=== PATIENT | male | born 1995 | race Caucasian/White ===

== ENCOUNTER 2017-02-20 16:01 | Inpatient (IN) | payer OTHER ==
[~2017-02-20] VITALS: Ht 170.2 cm; Wt 73.0 kg
[~2017-02-20 16:01] MED LIST: CLX20 PO
[2017-02-20] MEDS ORDERED: CITA40TA12 PO (16:37)
[2017-02-20] MEDS ORDERED: ATV5 PO (16:37)
[2017-02-20] MEDS ORDERED: BUPR-266 PO (16:37)
[2017-02-20] MEDS ORDERED: BUSP15TA70 PO (16:37)
--- NOTE | 2017-02-20 17:17 | EMERGENCY ROOM VISIT NOTE ---
History Report prepared by Aislinn: Amber Mccollum Under the Supervision of: Dr. Marlo Nathan D.O. First contact with patient: 16:54 Chief Complaint: MENTAL HEALTH EVALUATION Stated Complaint: DEPRESSION History of Present Illness The patient is a 21 year old male who presents to the Emergency Room with complaints of persistent, worsening depression over the past several weeks. The patient states that he has a history of anxiety and depression, noting that he was evaluated in the emergency department in the past for his symptoms. He denies any history of schizophrenia or bipolar disorder. The patient states that nothing specific happened to start his symptoms. The patient's mother states that the patient has been following with a Counselor and psychiatrist at [facility] for his depression. She states that the patient's Celexa was increased by 40 mg several weeks ago, and notes that his increased his depression. The patient's mother states that the patient's psychiatrist and counselor have disagreed on the patient's diagnosis. She states that the patient's counselor wants to look into treatment for autism and ADHD, where the psychiatrist believes the patient is depressed and anxious. The patient's mother states that yesterday the patient's psychiatrist started the patient on BuSpar. The patient reports suicidal thoughts, but denies any plan. He denies any homicidal ideation. The patient denies any previous suicide attempt. He reports a decrease in appetite and fluid intake. The patient states that he has been showering. He denies any drug or alcohol use. The patient states that he voluntarily came to the emergency department today to get help. Pt denies headache, change in vision, fevers, chest pain, shortness of breath, nausea, vomiting, diarrhea, pain with urination, and melena. Source of History: patient, parent (mother) Onset: past several weeks Position: other (global) Quality: other (depression) Timing: worsening Note: Associated Symptoms: suicidal thoughts Review of Systems See HPI for pertinent positives & negatives. A total of 10 systems reviewed and were otherwise negative. Past Medical & Surgical Medical Problems: (1) Depression (2) Major depressive disorder, recurrent episode with anxious distress Family History Anxiety disorder FH: cancer Hypertension Social History Smoking Status: Never Smoker Alcohol Use: none Drug Use: none Marital Status: single Housing Status: lives with family Occupation Status: employed Current/Historical Medications Scheduled Bupropion Hcl (Bupropion Hcl Er), 100 MG PO BID Buspirone Hcl (Buspar), 15 MG PO BID Citalopram Hydrobromide (Celexa), 40 MG PO DAILY Scheduled PRN Lorazepam (Lorazepam), 0.5 MG PO BID PRN for Anxiety Allergies Coded Allergies: No Known Allergies (Unverified , 02/20/17) Physical Exam Vital Signs Date Time Temp Pulse Resp B/P (MAP) Pulse Ox O2 Delivery O2 Flow Rate FiO2 02/20/17 19:37 68 18 102/56 98 Room Air 02/20/17 16:12 36.8 66 18 102/64 96 Room Air Physical Exam GENERAL: Sitting up on edge of bed, disheveled, no acute distress, nontoxic. EYE EXAM: normal conjunctiva. OROPHARYNX: no exudate, no erythema, lips, buccal mucosa, and tongue normal and mucous membranes are moist NECK: supple, no nuchal rigidity, no adenopathy, non-tender LUNGS: Clear to auscultation. Normal chest wall mechanics HEART: no murmurs, S1 normal and S2 normal ABDOMEN: abdomen soft, non-tender, normo-active bowel sounds, no masses, no rebound or guarding. BACK: Back is symmetrical on inspection and there is no deformity, no midline tenderness, no CVA tenderness. SKIN: no rashes and no bruising UPPER EXTREMITIES: upper extremities are grossly normal. LOWER EXTREMITIES: No pitting edema. NEURO EXAM: Normal sensorium, cranial nerves II-XII grossly intact, normal speech, no gross weakness of arms, no gross weakness of legs. PSYCH: Admits to suicidal thoughts with depression, not eating, drinking, or caring for self. Flat affect. Medical Decision & Procedures Laboratory Results 02/20/17 17:19 Red Blood Count 4.74, Mean Corpuscular Volume 90.7, Mean Corpuscular Hemoglobin 30.8, Mean Corpuscular Hemoglobin Concent 34.0, Mean Platelet Volume 8.6, Neutrophils (%) (Auto) 54.3, Lymphocytes (%) (Auto) 35.8, Monocytes (%) (Auto) 8.4, Eosinophils (%) (Auto) 1.3, Basophils (%) (Auto) 0.2, Neutrophils # (Auto) 2.92, Lymphocytes # (Auto) 1.92, Monocytes # (Auto) 0.45, Eosinophils # (Auto) 0.07, Basophils # (Auto) 0.01 02/20/17 17:19 Test 02/20/17 16:25 02/20/17 17:11 02/20/17 17:19 Urine Color YELLOW Urine Appearance CLEAR (CLEAR) Urine pH 7.0 (4.5-7.5) Urine Specific [place] 1.024 (1.000-1.030) Urine Protein NEG (NEG) Urine Glucose (UA) NEG (NEG) Urine Ketones NEG (NEG) Urine Occult Blood NEG (NEG) Urine Nitrite NEG (NEG) Urine Bilirubin NEG (NEG) Urine Urobilinogen NEG (NEG) Urine Leukocyte Esterase NEG (NEG) Urine Opiates Screen NEG (NEG) Urine Methadone, Qualitative NEG (NEG) Urine Barbiturates NEG (NEG) Urine Phencyclidine (PCP) Level NEG (NEG) Ur Amphetamine/Methamphetamine NEG (NEG) MDMA (Ecstasy) Screen NEG (NEG) Urine Benzodiazepines Screen NEG (NEG) Urine Cocaine Metabolite NEG (NEG) Urine Marijuana (THC) NEG (NEG) Bedside Glucose 93 mg/dl (70-99) White Blood Count 5.37 K/uL (4.8-10.8) Red Blood Count 4.74 M/uL (4.7-6.1) Hemoglobin 14.6 g/dL (14.0-18.0) Hematocrit 43.0 % (42-52) Mean Corpuscular Volume 90.7 fL (80-100) Mean Corpuscular Hemoglobin 30.8 pg (25-34) Mean Corpuscular Hemoglobin Concent 34.0 g/dl (32-36) Platelet Count 252 K/uL (130-400) Mean Platelet Volume 8.6 fL (7.4-10.4) Neutrophils (%) (Auto) 54.3 % Lymphocytes (%) (Auto) 35.8 % Monocytes (%) (Auto) 8.4 % Eosinophils (%) (Auto) 1.3 % Basophils (%) (Auto) 0.2 % Neutrophils # (Auto) 2.92 K/uL (1.4-6.5) Lymphocytes # (Auto) 1.92 K/uL (1.2-3.4) Monocytes # (Auto) 0.45 K/uL (0.11-0.59) Eosinophils # (Auto) 0.07 K/uL (0-0.5) Basophils # (Auto) 0.01 K/uL (0-0.2) RDW Standard Deviation 40.2 fL (36.4-46.3) RDW Coefficient of Variation 12.0 % (11.5-14.5) Immature Granulocyte % (Auto) 0.0 % Immature Granulocyte # (Auto) 0.00 K/uL (0.00-0.02) Anion Gap 7.0 mmol/L (3-11) Est Creatinine Clear Calc Drug Dose 98.5 ml/min Estimated GFR () 109.9 Estimated GFR (Non- 94.8 BUN/Creatinine Ratio 12.5 (10-20) Calcium Level 8.7 mg/dl (8.5-10.1) Total Bilirubin 0.5 mg/dl (0.2-1) Direct Bilirubin 0.1 mg/dl (0-0.2) Aspartate Amino Transf (AST/SGOT) 12 U/L (15-37) Alanine Aminotransferase (ALT/SGPT) 22 U/L (12-78) Alkaline Phosphatase 80 U/L (45-117) Total Protein 6.8 gm/dl (6.4-8.2) Albumin 4.0 gm/dl (3.4-5.0) Thyroid Stimulating Hormone (TSH) 0.553 uIu/ml (0.300-4.500) Ethyl Alcohol mg/dL < 3.0 mg/dl (0-3) Laboratory results per my review. ED Course ED COURSE: Vital signs were reviewed and showed normal vitals The patients medical record was reviewed The above diagnostic studies were performed and reviewed. ED treatments and interventions as stated above. 1701: The patient was evaluated in room A7. A complete history and physical examination was performed. 1759: Per [facility], the patient has been accepted to their department for further evaluation and treatment. The patient and his family are in agreement with the treatment plan. Medical Decision Differential diagnosis: Etiologies such as mood disorder, infection, hypoglycemia, electrolyte abnormalities, cardiac sources, intracerebral event, toxicologic, neurologic, as well as others were entertained. Medication Reconciliation: I attest that I have personally reviewed the patient' s current medication list. Blood pressure screening: Patient was found to have normal blood pressure on screening and does not require follow-up. Patient is a 21-year-old male with a history of depression who presents the ER for suicidal thoughts associated with depression. He has had these symptoms before in the past. He has no other physical complaints at this time. Labs were unremarkable. Patient was evaluated by [facility] and was admitted for suicidal thoughts along with depression, flat affect and not taking care of himself. Impression Primary Impression: Mood disorder Additional Impression: Suicidal thoughts Scribe Attestation The scribe's documentation has been prepared under my direction and personally reviewed by me in its entirety. I confirm that the note above accurately reflects all work, treatment, procedures, and medical decision making performed by me. Departure Information Dispostion Mental Health Acute Care Referrals No Doctor, Assigned (PCP) Problem Qualifiers
[2017-02-20 17:23] LABS: URINE APPEARANCE CLEAR (CLEAR); URINE BILIRUBIN NEG (NEG); URINE COLOR YELLOW; URINE NITRITE NEG (NEG); URINE SPECIFIC GRAVITY 1.024 (1.000-1.030); UROBILINOGEN NEG (NEG)
[2017-02-20 17:34] LABS: MANUAL MICROSCOPIC REQUIRED? NO; REVIEW REQ? NO
[2017-02-20 17:36] LABS: BASO % 0.2 %; BASO ABS # 0.01 K/uL (0-0.2); COMPLETE YES; EOS % 1.3 %; LYMPH % 35.8 %; LYMPH ABS # 1.92 K/uL (1.2-3.4); MEAN CELL VOLUME 90.7 fL (80-100); MEAN CORPUSCULAR HEMOGLOBIN 30.8 pg (25-34); MEAN PLATELET VOLUME 8.6 fL (7.4-10.4); MONO % 8.4 %; NEUT % 54.3 %; PLATELET COUNT 252 K/uL (130-400); RED BLOOD COUNT 4.74 M/uL (4.7-6.1); WHITE BLOOD COUNT 5.37 K/uL (4.8-10.8)
[2017-02-20 17:44] LABS: BENZODIAZEPINE, URINE NEG (NEG); COCAINE,URINE NEG (NEG); PHENCYCLIDINE, URINE NEG (NEG)
[2017-02-20 17:59] LABS: BUN/CREATININE RATIO 12.5 (10-20); CALCIUM 8.7 mg/dl (8.5-10.1); CREATININE 1.1 mg/dl (0.60-1.40)
[2017-02-20 18:10] LABS: THYROID STIMULATING HORMONE 0.553 uIu/ml (0.300-4.500)
[2017-02-20 19:37] VITALS: O2SAT 98
[2017-02-20] MEDS ORDERED: NURSING VERBAL MED ORDER ONE (20:30)
[2017-02-20] MEDS ORDERED: BISMUTH SUBSALICYLATE PER ML OMNICELL CHARGE PO PRN (20:45)
[2017-02-20] MEDS ORDERED: hydrOXYzine HCL 25 MG TAB PO PRN ×2 (20:45)
[2017-02-20] MEDS ORDERED: ACETAMINOPHEN 325 MG TAB PO PRN (20:45)
[2017-02-20] MEDS ORDERED: MAGNESIUM HYDROXIDE SUSP 30 ML UDC PO PRN (20:45)
[2017-02-20] MEDS ORDERED: SODIUM CHLORIDE 0.65% NA SOLN 45 ML (OCEAN) PRN (20:45)
[2017-02-20] MEDS ORDERED: ALUMINUM/MAGNESIUM SUSP 30 ML UDC PO PRN (20:45)
[2017-02-20] MEDS ORDERED: LORAZEPAM 0.5 MG TAB PO PRN (21:00)
[2017-02-20 21:17] VITALS: BP 98/59; PULSE 53; TEMP 36.6; Ht 170.2 cm; Wt 73.0 kg
[2017-02-20] MEDS: BusPIRone 15 MG TAB PO SCH (21:23)
[2017-02-21 06:45] VITALS: BP_SYST 106; BP_SYST 108; BP_DIAS 59; BP_DIAS 64; PULSE 51; PULSE 62; TEMP 36.3
[2017-02-21] MEDS: BusPIRone 15 MG TAB PO SCH ×2 (08:26→21:24)
[2017-02-21] MEDS: BuPROPion SR 100 MG TABCR PO SCH ×2 (08:26→17:18)
[2017-02-21] MEDS ORDERED: CITALOPRAM 40 MG TAB PO SCH (09:00)
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
[2017-02-21] MEDS ORDERED: VENLAFAXINE HCL XR 37.5 MG CAPXR PO ONE (13:30)
[2017-02-21] MEDS ORDERED: VENLAFAXINE HCL XR 75 MG CAPXR PO ONE (13:30)
[2017-02-22 06:48] VITALS: BP_SYST 107; BP_SYST 109; BP_DIAS 66; BP_DIAS 69; PULSE 59; PULSE 63; TEMP 36.6
[2017-02-22] MEDS: BusPIRone 15 MG TAB PO SCH ×2 (08:44→21:04)
[2017-02-22] MEDS: VENLAFAXINE HCL XR 75 MG CAPXR PO SCH (08:44)
--- NOTE | 2017-02-22 10:53 | Psychiatric Progress Notes ---
Progress Note Date of Service Feb 22, 2017. Interval History 21-year-old gentleman with known depression and anxiety, presents to the emergency room with progressive worsening of his condition resulting in suicidal thinking. He has been on Celexa 40 mg for the better part of the last year without response. Since his outpatient provider was thinking about adding a norepinephrine anergic medications, I will take the liberty of discontinuing Celexa and Wellbutrin and starting him on Effexor XR. I will reduce Celexa to 20 mg tonight and start Effexor XR 37.5 mg today increasing to 75 mg tomorrow. We will coordinate his care with his current providers and plan for a family meeting with his parents. He has chronic anxiety and has no coping strategies to stop the anxiety or guilt that he allows to consume him. We will assist him to learn some thought stopping, meditation, and relaxation exercises. At this time, he requires inpatient mental health treatment due to the severity of his condition and the risk for self-harm if discharged. Chief Complaint "A little better.". Subjective Patient was seen & assessed interval progress reviewed with Treatment Team. Jonathan says that he is adjusting to the unit and feeling a little better than when he came in. He is thinking a lot about his job options. 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 He says "I don't want to let my family down" which makes him feel guilty for considering other options. Parents are scheduled for a meeting this afternoon, but Jonathan is unsure whether they will be able to make it due to work obligations. He reports ongoing SI that "comes and goes", but less overall. He reports good sleep and appetite. He is making good use of groups to talk about his stressors. Effexor was started yesterday, he denies side effects. Review of Systems Constitutional: No fever, No chills, No sweats, No weight loss, No weakness, No fatigue, No problem reported ENT: No hearing loss, No unusual epistaxis, No nasal symptoms, No sore throat, No tinnitus, No dental problems, No trouble swallowing, No problem reported Respiratory: No cough, No sputum, No wheezing, No shortness of breath, No dyspnea on exertion, No dyspnea at rest, No hemoptysis, No problem reported Cardiovascular: No chest pain, No orthopnea, No PND, No edema, No claudication , No palpitations, No problem reported Abdomen: No pain, No nausea, No vomiting, No diarrhea, No constipation, No GI bleeding, No problem reported Musculoskeletal: No joint pain, No muscle pain, No swelling, No calf pain, No problem reported Neurologic: No memory loss, No paralysis, No weakness, No numbness/tingling, No vertigo, No balance problems, No problem reported Psychiatric: + depression symptoms (with ongoing SI) Integumentary: No rash, No itch, No new/changing skin lesions, No color change , No bleeding, No problem reported Sleep Information Total Hours of Sleep: 6.75 Meal Information Percent of Breakfast Consumed: 75 Percent of Lunch Consumed: 75 Percent of Dinner Consumed: 75 Mental Status Exam During interview pt is: alert and oriented, cooperative Appearance: appropriately dressed, appropriately groomed Eye contact is: good Motor behavior is: no abnormal motor movements Speech: normal in rate, rhythm & volume Affect: mood congruent, depressed, flat Mood is: depressed Thought process: goal directed Thought content: reality based without delusions Suicidal thought are: present, Plan: denied, Intent: denied Homicidal thoughts are: denied Hallucinations: denies auditory, denies visual Cognition: memory grossly intact, attention grossly intact, language grossly intact Intelligence estimated to be: average Insight: impaired Judgement: impaired Impression ADjusting well to the structure and support of the milieu. We are crossing over to Effexor XR from Celexa, and no side effects reported. Will continue Celexa 20/Effexor XR 75 tomorrow, but consider DC Celexa Saturday with increase in Effexor XR to 150 . Plan (1) Major depressive disorder, recurrent episode with anxious distress 02/21 -Reduce Celexa to 20 mg at bedtime tonight while starting Effexor XR 37.5 mg today increasing to 75 mg tomorrow -Obtain records from an coordinate care with his current providers -Family meeting with parents -Be sure parents secure the guns -Every 15 minute checks for safety -Encourage participation in group and individual counseling -Assist the patient to learn healthy coping strategies 02/22 - Continue current meds, but if tolerated, DC celexa Saturday and increase Effexor XR to 150 mg. - Family meeting scheduled for this afternoon (2) BETH (generalized anxiety disorder) 02/21 -Medications as above -Continue Ativan 0.5 mg twice a day when necessary as well as BuSpar 15 mg twice a day -Assist the patient to learn and utilize coping strategies such as thought stopping exercises, relaxation, meditation, and mindfulness 02/22 - Meds as above Has been reviewed with Dr. Alexandr Hand Discharge / Aftercare Planning Therapist: Name: constantino Stoker Mechanic: Name: constantino Visit Code E&M Code: 36577 Inventory Assets Strengths: Love of his family, has an associates degree Needs: To learn healthy coping strategies for anxiety and depression Risk Factors Assessment Male: Yes : Yes /single/: Yes Higher / Fall in social status: No Health problems: No Mental Health Diagnoses: Yes Substance use disorders: No Previous attempt: No Previous psychiatric stay: Yes Hopelessness: Yes Smoker: No Protective Factors Assessment Taoism beliefs: Yes : No Responsible for young children: No Employed: Yes Stable relationships: Yes Supportive family: Yes Good rapport with provider: Yes Data Vital Signs Last 24 Hrs: Date Time Temp Pulse Resp B/P (MAP) Pulse Ox O2 Delivery O2 Flow Rate FiO2 02/22/17 06:48 36.6 59 18 109/69 63 107/66 Meds Administered Last 24 Hrs: Meds Administered (Past 24Hrs) Medications (Trade) Dose Ordered Sig/Gabriela Route Start Time Stop Time Status Last Admin Dose Admin Bupropion HCl (Wellbutrin-Sr Tab) 100 mg BID17 PO 02/21/17 09:00 02/22/17 08:27 DC 02/21/17 17:18 100 MG Buspirone HCl (BusPAR TAB) 15 mg BID PO 02/20/17 22:00 03/22/17 21:59 02/22/17 08:44 15 MG Citalopram Hydrobromide (celeXA TAB) 40 mg DAILY PO 02/21/17 09:00 02/21/17 13:13 DC 02/21/17 08:26 40 MG Lorazepam (Ativan Tab) 0.5 mg BID PRN PO 02/20/17 21:00 03/22/17 20:59 02/20/17 21:23 0.5 MG Venlafaxine HCl (effeXOR EXTENDED REL CAP) 75 mg QAM PO 02/22/17 09:00 8/13/17 08:59 02/22/17 08:44 75 MG Venlafaxine HCl (effeXOR EXTENDED REL CAP) 37.5 mg 1330 ONCE PO 02/21/17 13:30 02/21/17 13:56 DC 02/21/17 14:11 37.5 MG Lab Results Last 24 Hrs: 02/20/17 17:19 Red Blood Count 4.74, Mean Corpuscular Volume 90.7, Mean Corpuscular Hemoglobin 30.8, Mean Corpuscular Hemoglobin Concent 34.0, Mean Platelet Volume 8.6, Neutrophils (%) (Auto) 54.3, Lymphocytes (%) (Auto) 35.8, Monocytes (%) (Auto) 8.4, Eosinophils (%) (Auto) 1.3, Basophils (%) (Auto) 0.2, Neutrophils # (Auto) 2.92, Lymphocytes # (Auto) 1.92, Monocytes # (Auto) 0.45, Eosinophils # (Auto) 0.07, Basophils # (Auto) 0.01 02/20/17 17:19 Test 02/20/17 16:25 02/20/17 17:11 02/20/17 17:19 Urine Color YELLOW Urine Appearance CLEAR (CLEAR) Urine pH 7.0 (4.5-7.5) Urine Specific [place] 1.024 (1.000-1.030) Urine Protein NEG (NEG) Urine Glucose (UA) NEG (NEG) Urine Ketones NEG (NEG) Urine Occult Blood NEG (NEG) Urine Nitrite NEG (NEG) Urine Bilirubin NEG (NEG) Urine Urobilinogen NEG (NEG) Urine Leukocyte Esterase NEG (NEG) Urine Opiates Screen NEG (NEG) Urine Methadone, Qualitative NEG (NEG) Urine Barbiturates NEG (NEG) Urine Phencyclidine (PCP) Level NEG (NEG) Ur Amphetamine/Methamphetamine NEG (NEG) MDMA (Ecstasy) Screen NEG (NEG) Urine Benzodiazepines Screen NEG (NEG) Urine Cocaine Metabolite NEG (NEG) Urine Marijuana (THC) NEG (NEG) Bedside Glucose 93 mg/dl (70-99) White Blood Count 5.37 K/uL (4.8-10.8) Red Blood Count 4.74 M/uL (4.7-6.1) Hemoglobin 14.6 g/dL (14.0-18.0) Hematocrit 43.0 % (42-52) Mean Corpuscular Volume 90.7 fL (80-100) Mean Corpuscular Hemoglobin 30.8 pg (25-34) Mean Corpuscular Hemoglobin Concent 34.0 g/dl (32-36) Platelet Count 252 K/uL (130-400) Mean Platelet Volume 8.6 fL (7.4-10.4) Neutrophils (%) (Auto) 54.3 % Lymphocytes (%) (Auto) 35.8 % Monocytes (%) (Auto) 8.4 % Eosinophils (%) (Auto) 1.3 % Basophils (%) (Auto) 0.2 % Neutrophils # (Auto) 2.92 K/uL (1.4-6.5) Lymphocytes # (Auto) 1.92 K/uL (1.2-3.4) Monocytes # (Auto) 0.45 K/uL (0.11-0.59) Eosinophils # (Auto) 0.07 K/uL (0-0.5) Basophils # (Auto) 0.01 K/uL (0-0.2) RDW Standard Deviation 40.2 fL (36.4-46.3) RDW Coefficient of Variation 12.0 % (11.5-14.5) Immature Granulocyte % (Auto) 0.0 % Immature Granulocyte # (Auto) 0.00 K/uL (0.00-0.02) Anion Gap 7.0 mmol/L (3-11) Est Creatinine Clear Calc Drug Dose 98.5 ml/min Estimated GFR () 109.9 Estimated GFR (Non- 94.8 BUN/Creatinine Ratio 12.5 (10-20) Calcium Level 8.7 mg/dl (8.5-10.1) Total Bilirubin 0.5 mg/dl (0.2-1) Direct Bilirubin 0.1 mg/dl (0-0.2) Aspartate Amino Transf (AST/SGOT) 12 U/L (15-37) Alanine Aminotransferase (ALT/SGPT) 22 U/L (12-78) Alkaline Phosphatase 80 U/L (45-117) Total Protein 6.8 gm/dl (6.4-8.2) Albumin 4.0 gm/dl (3.4-5.0) Thyroid Stimulating Hormone (TSH) 0.553 uIu/ml (0.300-4.500) Ethyl Alcohol mg/dL < 3.0 mg/dl (0-3)
[2017-02-22] MEDS ORDERED: CITALOPRAM 20 MG TAB PO SCH (22:00)
[2017-02-23 06:51] VITALS: BP_SYST 101; BP_SYST 110; BP_DIAS 62; BP_DIAS 67; PULSE 52; TEMP 36.5
[2017-02-23] MEDS: VENLAFAXINE HCL XR 75 MG CAPXR PO SCH (07:23)
[2017-02-23] MEDS: BusPIRone 15 MG TAB PO SCH ×2 (07:23→21:14)
[2017-02-23] MEDS ORDERED: VENLAFAXINE HCL XR 75 MG CAPXR PO ONE (09:00)
--- NOTE | 2017-02-23 11:49 | Psychiatric Progress Notes ---
Progress Note Date of Service Feb 23, 2017. Interval History 21-year-old gentleman with known depression and anxiety, presented to the emergency room with progressive worsening of his condition resulting in suicidal thinking. He has been on Celexa 40 mg for the better part of the last year without response and on unit it is being cross tapered to Effexor XR. Chief Complaint "I'm ready to leave". Subjective Patient was seen & assessed interval progress reviewed with nursing. Family meeting yesterday (notes reviewed). Patient states that he is feeling a bit calmer overall, tolerating med changes. He represented that family wanted him home today since he's "not suicidal". 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 Reviewed that given circumstances around admission that I suggest ongoing monitoring in hospital at least over night to complete cross taper and he agrees that better safety plan/structure if leaves tomorrow as although has some safety plans feels he would decompensate this afternoon given the unique stressors. Review of Systems Psych: denies symptoms other than stated above Constitutional: denied Cardiovascular: denied GI: denied Neurologic: denied Remainder of 10 body systems also reviewed and denied other than noted above. Sleep Information Total Hours of Sleep: 7.00 Meal Information Percent of Breakfast Consumed: 75 Percent of Lunch Consumed: 100 Percent of Dinner Consumed: 75 Mental Status Exam During interview pt is: alert and oriented, cooperative Appearance: appropriately dressed, appropriately groomed Eye contact is: good Motor behavior is: no abnormal motor movements Speech: normal in rate, rhythm & volume Affect: mood congruent, depressed Mood is: depressed Thought process: goal directed Thought content: reality based without delusions Suicidal thought are: denied, Plan: denied, Intent: denied Homicidal thoughts are: denied Hallucinations: denies auditory, denies visual Cognition: memory grossly intact, attention grossly intact, language grossly intact Intelligence estimated to be: average Insight: limited Judgement: limited Impression 21 yo male, 2nd inpatient admission here, cross tapering Celexa to Effexor XR. Plan (1) Major depressive disorder, recurrent episode with anxious distress 02/21 -Reduce Celexa to 20 mg at bedtime tonight while starting Effexor XR 37.5 mg today increasing to 75 mg tomorrow -Obtain records from an coordinate care with his current providers -Family meeting with parents -Be sure parents secure the guns -Every 15 minute checks for safety -Encourage participation in group and individual counseling -Assist the patient to learn healthy coping strategies 02/22 - Continue current meds, but if tolerated, DC celexa Saturday and increase Effexor XR to 150 mg. - Family meeting scheduled for this afternoon 02/23--d/c Celexa, titrate Effexor XR to 150 mg. Mother attempting to contact [facility] directly re: f/u appointment. Patient and mother agree to see [facility] Saturday's appt having apparently discussed change of primary prescriber in meeting yesterday with social work. Patient reports his therapist and mother would like psychological testing. (2) BETH (generalized anxiety disorder) 02/21 -Medications as above -Continue Ativan 0.5 mg twice a day when necessary as well as BuSpar 15 mg twice a day -Assist the patient to learn and utilize coping strategies such as thought stopping exercises, relaxation, meditation, and mindfulness 02/22 - Meds as above Has been reviewed with Dr. Alexandr Hand Discharge / Aftercare Planning Psychiatrist: Name: [facility] [employer] Phone Number: [phone] Date of Appointment: Feb 25, 2017 Time of Appointment: 1:00 Appointment Notes: call if pt won't be out in time - Annie is aware Therapist: Name: [facility] Phone Number: [phone] Time of Appointment: . Appointment Notes: called to ask when apt is Computer Repair Technician: Name: constantino Visit Code E&M Code: 78413 Inventory Assets Strengths: Love of his family, has an associates degree Needs: To learn healthy coping strategies for anxiety and depression Risk Factors Assessment Male: Yes : Yes /single/: Yes Higher / Fall in social status: No Health problems: No Mental Health Diagnoses: Yes Substance use disorders: No Previous attempt: No Previous psychiatric stay: Yes Hopelessness: Yes Smoker: No Protective Factors Assessment Yazidism beliefs: Yes : No Responsible for young children: No Employed: Yes Stable relationships: Yes Supportive family: Yes Good rapport with provider: Yes Data Vital Signs Last 24 Hrs: Date Time Temp Pulse Resp B/P (MAP) Pulse Ox O2 Delivery O2 Flow Rate FiO2 7/15/17 06:51 36.5 52 14 101/62 110/67 Meds Administered Last 24 Hrs: Meds Administered (Past 24Hrs) Medications (Trade) Dose Ordered Sig/Gabriela Route Start Time Stop Time Status Last Admin Dose Admin Citalopram Hydrobromide (celeXA TAB) 20 mg HS PO 02/22/17 22:00 02/23/17 09:03 DC 02/22/17 21:04 20 MG Venlafaxine HCl (effeXOR EXTENDED REL CAP) 75 mg QAM PO 02/22/17 09:00 02/23/17 09:03 DC 02/23/17 07:23 75 MG Venlafaxine HCl (effeXOR EXTENDED REL CAP) 37.5 mg 1330 ONCE PO 02/21/17 13:30 02/21/17 13:56 DC 02/21/17 14:11 37.5 MG Venlafaxine HCl (effeXOR EXTENDED REL CAP) 75 mg ONE ONCE PO 02/23/17 09:00 02/23/17 09:04 DC 02/23/17 09:18 75 MG
[2017-02-24 06:57] VITALS: BP_SYST 107; BP_SYST 116; BP_DIAS 68; BP_DIAS 69; PULSE 60; TEMP 36.5
[2017-02-24] MEDS: BusPIRone 15 MG TAB PO SCH (08:22)
[2017-02-24] MEDS ORDERED: VENLAFAXINE HCL XR 150 MG CAPXR PO SCH ×2 (09:00)
[2017-02-24] MEDS ORDERED: EFFSR150 PO (09:15)
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
[2017-02-24] MEDS ORDERED: VENLAFAXINE HCL XR 75 MG CAPXR PO SCH (09:45)
== END 2017-02-24 12:35 | disposition home or self-care (01) | DRG 885 ==
LOC: C.EDB 16:02 → C.MHU 20:28
PROVIDERS: ADMIT Psychiatry & Neurology Child & Adolescent Psychiatry; ATTEND Psychiatry & Neurology Child & Adolescent Psychiatry
DX: F33.9 Major depressive disorder, recurrent, unspecified (principal); R45.851 Suicidal ideations; F41.1 Generalized anxiety disorder; Z79.899 Other long term (current) drug therapy

== ENCOUNTER 2018-02-25 08:18 | Observation (INO) | payer OTHER ==
[~2018-02-25] VITALS: Ht 170.2 cm; Wt 67.6 kg
[2018-02-25] VITALS (7 sets, daily range): BP systolic 108–127; BP diastolic 63–75; PULSE 50–76; TEMP 36.3–36.9; O2SAT 96–98; Ht 170.2 cm; Wt 67.6 kg
[~2018-02-25 08:18] MED LIST changes: +ATV5 PO; +BUSP15TA70 PO; -CLX20 PO; +EFFSR150 PO
[2018-02-25] MEDS ORDERED: SODIUM CHLORIDE 0.9% 1000ML 1,000 ML IV STA (09:00)
[2018-02-25] MEDS ORDERED: ONDANSETRON INJ 2 MG/ML 2 ML VIAL IV STA (09:00)
[2018-02-25] MEDS ORDERED: MoRPHine SULFATE 10 MG/ML CARP/VIAL IV STA (09:00)
--- NOTE | 2018-02-25 09:28 | DIAGNOSTIC IMAGING REPORT ---
L HAND MIN 3 VIEWS ROUTINE CLINICAL HISTORY: left hand pain, crush injury, deformity, lacerations 3/4/5 digit trauma. Pain. COMPARISON: None. DISCUSSION: Transverse displaced fractures proximal phalanges fourth and fifth fingers. Transverse mildly displaced fracture tuft distal phalanx third finger. Soft tissue disruption. Soft tissue edema. All remaining osseous structures are unremarkable. There is no evidence for soft tissue swelling. IMPRESSION: Transverse displaced fractures mid shafts proximal phalanges fourth and fifth fingers. Minimally distracted fracture tuft distal phalanx third finger. The above report was generated using voice recognition software. It may contain grammatical, syntax or spelling errors. Electronically signed by: Javy Mueller M.D. 02/25/2018 9:27 AM Dictated Date/Time: 02/25/2018 9:26 AM
[2018-02-25] MEDS ORDERED: CEFAZOLIN SOD 1000MG/7.5 ML IV PUSH IV STA (10:34)
[2018-02-25] MEDS ORDERED: MoRPHine SULFATE 10 MG/ML CARP/VIAL IV PRN (10:45)
--- NOTE | 2018-02-25 12:35 | EMERGENCY ROOM VISIT NOTE ---
ED Visit Note First contact with patient: 08:42 CHIEF COMPLAINT: Left hand injury HISTORY OF PRESENT ILLNESS: This 22-year-old male patient presented to the emergency department, ambulatory, approximately 15-minute after they injured the left when he smashed it between a chain in the tailgate while opening the tailgate of his truck. 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 He states there is deformity and was a significant amount of bleeding. The patient is right-hand dominant. He denies any previous injury to this hand. The patient rates the pain as sharp and 8/10. The patient denies any numbness or tingling. The patient does not have injuries to the wrist. The patient's last oral intake was a few sips of water on his way to the emergency department. He has not eaten since dinner last night. Pt. states he believes his tetanus vaccination is UTD. REVIEW OF SYSTEMS: A 6 system review of systems was completed with positives and pertinent negatives in the HPI. ALLERGIES: None MEDICATIONS: BuSpar, lorazepam, Effexor PMH: Anxiety SOCIAL HISTORY: The patient lives locally with family. He denies drug, alcohol , tobacco use. PHYSICAL EXAM: Vital Signs: Reviewed Nurse's notes, vital signs stable. GENERAL : This is a 22-year-old white male, in no acute distress, but appears to be in pain, well-developed, well-nourished. MUSCULOSKELETAL: There is deformity of the left hand, the fourth and fifth digits. There is an open laceration of the distal phalanx of the third finger. There is tenderness of the third, fourth, and fifth digits. There is no thenar or hypothenar eminence atrophy. Decreased thumb opposition to all fingers due to pain. Strainer Tender strength 2/5. There are lacerations on the proximal phalanx of the fourth and fifth digits on the dorsal aspect. Capillary refill less than 2 seconds. No tenderness of the fingers or wrist. Full range of motion of the wrist. No snuff box tenderness. Radial pulse 2+. NEURO: Alert and oriented to person, place, and time. Normal sensation to light and sharp touch. RADIOLOGY: L HAND MIN 3 VIEWS ROUTINE CLINICAL HISTORY: left hand pain, crush injury, deformity, lacerations 3/4/5 digit trauma. Pain. COMPARISON: None. DISCUSSION: Transverse displaced fractures proximal phalanges fourth and fifth fingers. Transverse mildly displaced fracture tuft distal phalanx third finger. Soft tissue disruption. Soft tissue edema. All remaining osseous structures are unremarkable. There is no evidence for soft tissue swelling. IMPRESSION: Transverse displaced fractures mid shafts proximal phalanges fourth and fifth fingers. Minimally distracted fracture tuft distal phalanx third finger. The above report was generated using voice recognition software. It may contain grammatical, syntax or spelling errors. Electronically signed by: Javy Mueller M.D. 02/25/2018 9:27 AM Dictated Date/Time: 02/25/2018 9:26 AM EMERGENCY DEPARTMENT COURSE: I examined the patient. IV access obtained, labs drawn. The patient was given 6 mg morphine IV and 1 L normal saline solution. An x-ray of the left hand was reviewed by myself and radiologist as above. I consulted with orthopedic surgery regarding the need for operative management. The patient was given 1 g Ancef IV. The patient was seen and evaluated by Ricky Monae. Please see dictation regarding ongoing management and care. I attest that I have personally reviewed the patient's current medication list. Patient was found to have normal blood pressure on screening and does not require follow-up. Etiologies such as soft tissue injury, fracture, dislocation, neurovascular compromise, compartment syndrome, as well as others were entertained. DIAGNOSIS: Open fractures of the left fingers The chart was completed utilizing Ker[employer] voice recognition software. Grammatical errors, random word insertions, pronoun errors, and incomplete sentences are an occasional consequence of this system due to software limitations, ambient noise, and hardware issues. Any formal questions or concerns about the content, text, or information contained within the body of this dictation should be directly addressed to the provider for clarification. Problem List Medical Problems: (1) BETH (generalized anxiety disorder) Status: Chronic Current/Historical Medications Scheduled Buspirone Hcl (Buspar), 15 MG PO BID Venlafaxine Hcl (Effexor Extended Rel), 150 MG PO QAM Scheduled PRN Lorazepam (Lorazepam), 0.5 MG PO BID PRN for Anxiety Allergies Coded Allergies: No Known Allergies (Unverified , 02/25/18) Vital Signs Date Time Temp Pulse Resp B/P (MAP) Pulse Ox O2 Delivery O2 Flow Rate FiO2 02/25/18 11:42 36.9 67 20 113/71 (85) 98 Room Air 02/25/18 11:33 37.0 16 109/59 98 Room Air 02/25/18 10:50 78 16 110/66 99 Room Air 02/25/18 10:02 64 20 129/86 100 02/25/18 09:34 99 Room Air 02/25/18 08:21 36.4 64 17 107/71 100 Room Air Medications Administered Medications (Trade) Dose Ordered Sig/Gabriela Route Start Time Stop Time Status Last Admin Dose Admin Sodium Chloride 1,000 ml @ 999 mls/hr Q1H1M STAT IV 02/25/18 09:00 02/25/18 10:00 DC 02/25/18 09:24 999 MLS/HR Morphine Sulfate (MoRPHine SULFATE INJ) 6 mg NOW STAT IV 02/25/18 09:00 02/25/18 09:02 DC 02/25/18 09:25 6 MG Ondansetron HCl (Zofran Inj) 4 mg NOW STAT IV 02/25/18 09:00 02/25/18 09:02 DC 02/25/18 09:25 4 MG Cefazolin Sodium (Cefazolin 1000mg Iv Push) 2,000 mg NOW STAT IV 02/25/18 10:34 02/25/18 10:36 DC 02/25/18 11:23 2,000 MG Departure Information Impression Primary Impression: Multiple open fractures of phalanx of finger of left hand Dispostion Being Evaluated By Surgeon Condition GOOD Referrals No Doctor, Assigned (PCP) Patient Instructions [facility]
--- NOTE | 2018-02-25 12:37 | History & Physical Bridge Note ---
H&P Re-Evaluation Bridge Note: I have examined the patient, reviewed the History & Physical and in the interval since the performance of the History & Physical I have noted the following changes of clinical significance: No changes noted
--- NOTE | 2018-02-25 13:32 | History and Physical ---
History & Physical Date & Time of Service: Feb 25, 2018 at 13:13 Chief Complaint: Hand Caught In Tailgate Primary Care Physician: MARKOS PEREZ DO History of Present Illness Source: patient 22-year-old white male who was working this morning. 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 He states that while standing near a dump truck, the back tailgate of the dump truck was opened. Apparently the tailgate started open faster than normal and instead of letting it go, he tried to catch it. 1 of the change that is connected to the tailgate and trapped his hand between the tailgate and the chain when it fell causing injury to his left hand. He had immediate bleeding and noted deformity of some of his fingers and he was brought to the emergency [facility] X-rays were taken and was found that he had fractures of the fourth and fifth proximal phalanx and a fracture of the third distal phalanx at the fingertip. The fifth finger appear to be an open fracture and possibly the fourth as well. We have been asked to take care of this gentleman's injury. Past Medical/Surgical History Medical Problems: (1) Depression (2) BETH (generalized anxiety disorder) (3) Major depressive disorder, recurrent episode with anxious distress (4) Mood disorder (5) none (6) Suicidal ideation (7) Suicidal thoughts Family History Anxiety disorder FH: cancer Hypertension Social History Smoking Status: Never Smoker Drug Use: none Marital Status: single Occupational Status: employed Allergies Coded Allergies: No Known Allergies (Unverified , 02/25/18) Home Medications Scheduled Buspirone Hcl (Buspar), 15 MG PO BID Venlafaxine Hcl (Effexor Extended Rel), 150 MG PO QAM Scheduled PRN Lorazepam (Lorazepam), 0.5 MG PO BID PRN for Anxiety Review of Systems Denies any recent chills, night sweats, unusual weight loss or weight gain. No flu or cold-like symptoms. No increased cough or sputum production. Denies chest pain, chest pressure, irregular heartbeat. Denies asthma, bronchitis, tuberculosis, hemoptysis. Denies pneumonia. Denies any unusual abdominal pain , nausea, vomiting, diarrhea. No history of hepatitis. No history of hematemesis, melena, hematochezia. Denies history of hematuria, pyuria, dysuria , renal calculi. No history of seizures, epilepsy, TIA, CVA, migraine headache. No recent unusual vision changes and the patient does wear contact lenses. Physical Exam Vital Signs Date Time Temp Pulse Resp B/P (MAP) Pulse Ox O2 Delivery O2 Flow Rate FiO2 02/25/18 11:42 36.9 67 20 113/71 (85) 98 Room Air 02/25/18 11:33 37.0 16 109/59 98 Room Air 02/25/18 10:50 78 16 110/66 99 Room Air 02/25/18 10:02 64 20 129/86 100 02/25/18 09:34 99 Room Air 02/25/18 08:21 36.4 64 17 107/71 100 Room Air On examination, the patient is a 22-year-old white male who is alert and oriented 3 and in no acute distress. Pleasant and cooperative. Even with his injury his pain appears to be controlled. Skin: Warm and dry HEENT: Head is normocephalic and atraumatic. There is no scleral icterus or injection seen at this time. Nasal airways patent, and oral mucosa is pink and moist. Neck: Supple Heart: Regular rate and rhythm Lungs: Clear to auscultation Abdomen: Soft flat and nontender. Bowel sounds are present and active 4 Genitalia and rectal: Not performed Extremities: Examination of his left hand specifically, he has obvious deformity to his fourth and fifth fingers at the proximal phalanx. The fifth finger has an obviously open wound that goes over the dorsum of the finger and wraps around laterally. He has a small laceration noted on the fourth finger just distal to the MP joint. Both fingers are pink and warm and sensation is decreased in both fingers but the patient states that he can feel me touching his fingers but that they feel different than his other fingers. Examination of his third finger shows that his fingernail is dislodged in the tip of the finger has fairly decent sized laceration. Sensation is also somewhat decreased in this finger. His thumb and index finger are unaffected and he has good range of motion of these 2. No attempts are made to move the fourth and fifth fingers. He is able to move third finger which causes him some discomfort. He has some mild swelling over the dorsum of the hand and rates that he has decreased sensation over the dorsum at approximately the mid metacarpal region. Denies any pain in the wrist and is able to move the wrist somewhat slightly but does not want to move much due to his injury of his fourth and fifth fingers. Denies any forearm or elbow pain denies left shoulder pain. Radial and ulnar pulses are strong. Patient denies any other injury of the extremities at this time. Right upper extremity and bilateral lower extremities are within normal limits on brief exam. No gross motor or sensory loss noted other than due to fractures of the left hand. Denies neck pain, thoracic or low back pain at this time. Eyes: normal inspection Diagnostics Diagnostic Radiology [~ rep ct add3]] L HAND MIN 3 VIEWS ROUTINE CLINICAL HISTORY: left hand pain, crush injury, deformity, lacerations 3/4/5 digit trauma. Pain. COMPARISON: None. DISCUSSION: Transverse displaced fractures proximal phalanges fourth and fifth fingers. Transverse mildly displaced fracture tuft distal phalanx third finger. Soft tissue disruption. Soft tissue edema. All remaining osseous structures are unremarkable. There is no evidence for soft tissue swelling. IMPRESSION: Transverse displaced fractures mid shafts proximal phalanges fourth and fifth fingers. Minimally distracted fracture tuft distal phalanx third finger. Impression Assessment and Plan Displaced transverse fractures of the fourth and fifth proximal phalanges. Small tuft fracture of the third distal left phalange. Likely open fracture of the fifth proximal phalangeal fracture with possibility of open fracture of the fourth as well. Plan: Patient will be taken to the operating room by Dr. Perez and open irrigation and debridement of the open fractures of the provided. Reduction of the fractures will be performed through percutaneous pinning versus open reduction and internal fixation of the fourth and fifth proximal phalanges. Irrigation debridement of the third fingertip with possibility of distal fingertip amputation. Resuscitation Status VTE Prophylaxis Will order VTE Prophylaxis: Yes
[2018-02-25] MEDS ORDERED: BACITRACIN 50000 UNIT VIAL ONE ×2 (14:07→14:52)
[2018-02-25] MEDS ORDERED: BUPIVACAINE 0.25% 30 ML VIAL ONE (14:07)
[2018-02-25] MEDS ORDERED: LIDOCAINE HCL 2% 2 ML VIAL (20MG/ML) ONE (14:14)
[2018-02-25] MEDS ORDERED: GLYCOPYRROLATE INJ 0.2 MG/ML VIAL ONE (14:14)
[2018-02-25] MEDS ORDERED: PHENYLEPHRINE HCL INJ 10 MG/ML VIAL ONE (14:14)
[2018-02-25] MEDS ORDERED: EpHEDrine SULFATE INJ 50 MG/ML AMP ONE (14:14)
[2018-02-25] MEDS ORDERED: PROPOFOL IV EMULSION 10 MG/ML 20 ML VIAL ONE (14:14)
[2018-02-25] MEDS ORDERED: SUCCINYLCHOLINE CHLORIDE 20 MG/ML 10 ML VIAL IV ONE (14:14)
[2018-02-25] MEDS ORDERED: MIDAZOLAM HCL 1 MG/ML 2ML VIAL ONE (14:14)
[2018-02-25] MEDS ORDERED: DEXAMETHASONE SOD INJ 4 MG/ML VIAL ONE (14:14)
[2018-02-25] MEDS ORDERED: NEOSTIGMINE METHYLSULFATE 5 MG/5 ML SYR ONE (14:14)
[2018-02-25] MEDS ORDERED: ONDANSETRON INJ 2 MG/ML 2 ML VIAL ONE (14:14)
[2018-02-25] MEDS ORDERED: FENTANYL CITRATE INJ 50 MCG/1 ML 2 ML VIAL ONE (14:14)
[2018-02-25] MEDS ORDERED: ONDANSETRON INJ 2 MG/ML 2 ML VIAL IV PRN (14:15)
[2018-02-25] MEDS ORDERED: EpHEDrine SULFATE INJ 50 MG/ML AMP IV PRN (14:15)
[2018-02-25] MEDS ORDERED: FENTANYL CITRATE INJ 50 MCG/1 ML 2 ML VIAL IV PRN (14:15)
[2018-02-25] MEDS ORDERED: ATROPINE SULFATE 0.1 MG/ML 5ML SYR IV PRN (14:15)
[2018-02-25] MEDS ORDERED: HYDROmorphone INJ 1 MG/ML SYR IV PRN (14:15)
--- NOTE | 2018-02-25 15:56 | DIAGNOSTIC IMAGING REPORT ---
L HAND MIN 3 VIEWS ROUTINE CLINICAL HISTORY: ORIF LT 3-5 FINGER PINNING COMPARISON: Left hand same date DISCUSSION: Image intensifier was utilized for pinning of the fractures of the third fourth and fifth fingers. Fluoroscopy time is 3 minutes. 4 images are acquired. IMPRESSION: Image intensifier usage for open reduction internal fixation of left third fourth and fifth finger fractures. The above report was generated using voice recognition software. It may contain grammatical, syntax or spelling errors. Electronically signed by: Javy Mueller M.D. 02/25/2018 3:54 PM Dictated Date/Time: 02/25/2018 3:53 PM
--- NOTE | 2018-02-25 16:00 | [facility] Post Operative Brief Note ---
Immediate Operative Summary Operative Date Feb 25, 2018. Pre-Operative Diagnosis Displaced transverse fractures of the fourth and fifth proximal Left phalanges. Small tuft fracture of the third distal left phalange. Likely open fracture of the fifth proximal phalangeal fracture with possibility of open fracture of the fourth as well. Post-Operative Diagnosis Displaced transverse fractures of the fourth and fifth proximal Left phalanges. Small tuft fracture of the third distal left phalange. open fracture of the fifth proximal phalangeal fracture with possibility of open fracture of the fourth as well. Procedure(s) Performed Open lavage of open fracture of Displaced transverse fractures of the fourth and fifth proximal Left phalanges; percutaneous pinnings of 4th & 5th proximal phalaynx & proximal 3rd finger distal phalynx; repair of skin wounds Surgeon Dr. Coco Alvares Sanitary Landfill Operator Surgeon(s) Ricky Monae PA-C Estimated Blood Loss 5mL Findings Consistent with Post-Op Diagnosis Specimens none per surgeon Drains None Anesthesia Type General Complication(s) none Disposition Disposition: Recovery Room / PACU
--- NOTE | 2018-02-25 16:05 | [facility] Operative Report ---
Operative Report Operative Date Feb 25, 2018. Pre-Operative Diagnosis Displaced transverse fractures of the fourth and fifth proximal Left phalanges. Small tuft fracture of the third distal left phalange. Likely open fracture of the fifth proximal phalangeal fracture with possibility of open fracture of the fourth as well. Post-Operative Diagnosis Displaced transverse fractures of the fourth and fifth proximal Left phalanges. Small tuft fracture of the third distal left phalange. open fracture of the fifth proximal phalangeal fracture with possibility of open fracture of the fourth as well. Procedure(s) Performed Open lavage of open fracture of Displaced transverse fractures of the fourth and fifth proximal Left phalanges; percutaneous pinnings of 4th & 5th proximal phalaynx & proximal 3rd finger distal phalynx; repair of skin wounds with repair of nailbed Surgeon Dr. Coco Alvares Grout Machine Operator Surgeon(s) Ricky Monae PA-C Estimated Blood Loss 5mL Findings Patient presents after sustaining a crush injury while a tailgate with chain had come back and crushed his left hand involving his proximal pharynx with small finger proximal phalanx of ring finger distal phalanx of middle finger all 3 were open fractures with soft tissue crush injury the laceration over the proximal phalanx of the fourth finger was approximately 3-1/2-4 cm there is a 2 cm laceration over the proximal phalanx of the ring finger and the nail bed avulsion fracture of distal phalanx at the base of the nailbed of the middle finger Specimens none per surgeon Drains None Anesthesia Type General Complication(s) none Disposition Recovery Room / PACU Indications Patient presents after sustaining a crush injury while working with a tail gait came back and across his finger between the tailgate and the the suspending chain patient presents with the above fractures open fractures as well as open wounds and nailbed fracture laceration of the distal phalanx Description of Procedure After proper prepping draping of left upper extremity the left open fractures were subsequently evaluated and were irrigated with bacitracin impregnated a copious amounts sterile saline solution with 6 L of sterile saline solution the wounds having been thoroughly irrigated the proximal phalanx of the small subsequent ring finger were both fixed with intramedullary K wires 0.452 for each phalanx which should give stability and rotational control the fractures wound was then once again thoroughly irrigated debridement lavage of the on the on the small finger the extensor mechanism was evaluated there was a small area of disruption of the extensor tendon at the region of the fracture that was only partial involving approximately 50-20% the remaining neurovascular structures are otherwise noted to be intact so after thorough irrigation debridement lavage of the fourth finger open fracture and stabilization with 2 0.45 K wires the skin was closed with 5-0 nylon the fourth finger fracture was reduced and was to 0.45 K wires were placed intramedullary fashion to remain to hold the fracture stable for the wound of the approximately 2 cm involving the proximal phalanx dorsally was irrigated and suctioned closed with 5-0 nylon subsequently of the middle finger distal phalanx fracture with retrograde pinned not crossing the DIP joint subsequently the nail was removed the nailbed was repaired with 5-0 Vicryl the near complete amputation was repaired with #5- 0 nylon there was a skin bridge on the ulnar aspect with neurovascular good pulp and tone to the distal tip that the skin bridge was approximately 78 mm subsequently was made to save and repaired after repairing the nailbed repair and skin the the K wire was left in place which stabilize the distal phalanx fracture and the nail was placed back over the repair of the nailbed a sterile compressive bulky dressing with dorsal volar splints was placed patient was also taken recovery in stable condition of report dictated by iGorgio please note Ricky BRAMBILA was necessary for 4 him position for pinning of fractures was necessary for the case I attest to the content of the Intraoperative Record and any orders documented therein. Any exceptions are noted below.
[2018-02-25] MEDS ORDERED: LORAZEPAM 0.5 MG TAB PO PRN (16:15)
[2018-02-25] MEDS ORDERED: MoRPHine SULFATE 2 MG/ML CARP IV PRN (16:15)
[2018-02-25] MEDS ORDERED: OXYCODONE HCL IR 5 MG TAB (IMMEDIATE RELEASE) PO PRN (16:15)
--- NOTE | 2018-02-25 16:46 | Anesthesiology Progress Note ---
Anesthesia Post Op Note Date & Time Feb 25, 2018 at 16:45 Vital Signs Pain Intensity: 0 Vital Signs Past 12 Hours Date Time Temp Pulse Resp B/P (MAP) Pulse Ox O2 Delivery O2 Flow Rate FiO2 02/25/18 16:40 66 16 132/80 100 Room Air 02/25/18 16:30 77 15 130/77 100 Oxymask 10 02/25/18 16:20 95 14 128/80 100 Oxymask 10 02/25/18 16:12 36.3 111 15 117/79 100 Oxymask 10 02/25/18 11:42 36.9 67 20 113/71 (85) 98 Room Air 02/25/18 11:33 37.0 16 109/59 98 Room Air 02/25/18 10:50 78 16 110/66 99 Room Air 02/25/18 10:02 64 20 129/86 100 02/25/18 09:34 99 Room Air 02/25/18 08:21 36.4 64 17 107/71 100 Room Air Notes Mental Status: alert / awake / arousable, participated in evaluation Pt Amnestic to Procedure: Yes Nausea / Vomiting: adequately controlled Pain: adequately controlled Airway Patency, RR, SpO2: stable & adequate BP & HR: stable & adequate Hydration State: stable & adequate Anesthetic Complications: no major complications apparent
[2018-02-25] MEDS ORDERED: IV FLUIDS COMPLETED PRN (18:15)
[2018-02-25] MEDS: D5W AND 1/2NSS + 20MEQ KCL 1,000 ML IV SCH (18:58)
[2018-02-25] MEDS: ACETAMINOPHEN 500 MG TAB PO SCH (20:43)
[2018-02-25] MEDS: KETOROLAC TROMETHAMINE 30 MG/ML VIAL IV. SCH (20:43)
[2018-02-25] MEDS: BusPIRone 15 MG TAB PO SCH (20:43)
[2018-02-25] MEDS: CEFAZOLIN IV 1,000 MG in SYRINGE 0 ML IV SCH (20:46)
[2018-02-26] MEDS: KETOROLAC TROMETHAMINE 30 MG/ML VIAL IV. SCH ×2 (01:55→08:02)
[2018-02-26 03:23] VITALS: BP 110/57; PULSE 63; TEMP 36.6; O2SAT 98
[2018-02-26] MEDS: D5W AND 1/2NSS + 20MEQ KCL 1,000 ML IV SCH (03:52)
[2018-02-26] MEDS: CEFAZOLIN IV 1,000 MG in SYRINGE 0 ML IV SCH (03:52)
[2018-02-26] MEDS: ACETAMINOPHEN 500 MG TAB PO SCH (05:42)
[2018-02-26 07:17] VITALS: BP 107/57; PULSE 66; TEMP 36.6; O2SAT 98
--- NOTE | 2018-02-26 07:26 | Orthopedic Progress Note ---
Orthopedic Progress Note Date of Service Feb 26, 2018. Subjective Post OP Day: 1 Reports: feeling well, Denies: complaints Additional Notes: Doing well, would like to go home today. Objective N/V intact, splint C/D/I, dressing C/D/I, A&O x3 Date Time Temp Pulse Resp B/P (MAP) Pulse Ox O2 Delivery O2 Flow Rate FiO2 02/26/18 07:17 36.6 66 18 107/57 (74) 98 Room Air 02/26/18 03:23 36.6 63 16 110/57 (74) 98 Room Air 02/26/18 00:26 Room Air 02/25/18 23:15 36.5 62 16 114/68 (83) 98 Room Air 02/25/18 21:11 36.4 68 16 108/63 (78) 96 Room Air 02/25/18 19:25 36.6 71 16 111/67 (82) 96 Room Air 02/25/18 18:25 36.4 50 18 127/75 (92) 98 Room Air 02/25/18 17:55 36.3 60 18 111/72 (85) 97 Room Air 02/25/18 17:25 Room Air 02/25/18 17:25 36.9 76 18 123/74 (90) 98 Room Air 02/25/18 17:25 Room Air 02/25/18 17:10 72 14 126/69 97 Room Air 02/25/18 17:00 69 16 131/78 97 Room Air 02/25/18 16:50 36.5 58 13 127/81 100 Room Air 02/25/18 16:40 66 16 132/80 100 Room Air 02/25/18 16:30 77 15 130/77 100 Oxymask 10 02/25/18 16:20 95 14 128/80 100 Oxymask 10 02/25/18 16:12 36.3 111 15 117/79 100 Oxymask 10 02/25/18 11:42 36.9 67 20 113/71 (85) 98 Room Air 02/25/18 11:33 37.0 16 109/59 98 Room Air 02/25/18 10:50 78 16 110/66 99 Room Air 02/25/18 10:02 64 20 129/86 100 02/25/18 09:34 99 Room Air 7/17/18 08:21 36.4 64 17 107/71 100 Room Air Assessment & Plan Assessment: POD#1 Open lavage of open fracture of Displaced transverse fractures of the fourth and fifth proximal Left phalanges; percutaneous pinnings of 4th & 5th proximal phalaynx & proximal 3rd finger distal phalynx; repair of skin wounds with repair of nailbed Plan: -Pain management -D/C likely today with f/u in Dr. Castillo's office tomorrow for dressing change and wound check. Inhouse Planning Pain Management: PO Tylenol, Oxy IR Discharge Planning Discharge Planning: home
[2018-02-26] MEDS ORDERED: RXC5 PO (07:30)
--- NOTE | 2018-02-26 07:38 | Discharge Instructions ---
Discharge Instructions Date of Service Feb 26, 2018. Admission Reason for Admission: Open Fracture Left 3RD, 4TH, 5TH Fingers Discharge Discharge Diagnosis / Problem: Open Fracture 3rd, 4th, and 5th fingers Discharge Goals Goal(s): Decrease discomfort, Improve function Activity Recommendations Activity Limitations: per Instructions/Follow-up section . Instructions / Follow-Up Instructions / Follow-Up ACTIVITY RECOMMENDATIONS: * Avoid lifting anything with your operative arm until directed to by your surgeon. SPECIAL CARE INSTRUCTIONS: * Your bandage and splint should be left in place until your follow up appointment in the office. * Some drainage onto the dressing may occur. This is normal. * If the bandage feels excessively tight, you may loosen the elastic bandage. Then call the physician's office for further instructions. * If possible, keep your hand elevated above the level of your heart for the first 2 post operative days. You may use a sling if necessary. SPECIAL PRECAUTIONS: * If you notice increased drainage, fever over 101 degrees F. or severe, unremitting pain, call your physician/office at . * You may have been prescribed pain medication. If you experience nausea and/or skin rash, discontinue this medication and contact our office for an alternative medication. FOLLOW UP VISIT: If appointment is not already scheduled: Please call [facility] to make a follow-up appointment for tomorrow for a dressing change and wound check with our hand specialist, Dr. Castillo or his PA at . Current Hospital Diet Patient's current hospital diet: Regular Diet Discharge Diet Recommended Diet: Regular Diet Procedures Procedures Performed: Open lavage of open fracture of Displaced transverse fractures of the fourth and fifth proximal Left phalanges; percutaneous pinnings of 4th & 5th proximal phalaynx & proximal 3rd finger distal phalynx; repair of skin wounds with repair of nailbed Pending Studies Studies pending at discharge: no Medical Emergencies . Who to Call and When: Medical Emergencies: If at any time you feel your situation is an emergency, please call 911 immediately. . Non-Emergent Contact Non-Emergency issues call your: Surgeon Call Non-Emergent contact if: temperature is above 101, your pain is not controlled, your pain is worsening, your pain is concerning you . "Provider Documentation" section prepared by Reji Quick. . [place] Drug Monitoring Program Search Results: patient reviewed within database, no issues identified
[2018-02-26] MEDS: BusPIRone 15 MG TAB PO SCH (08:00)
[2018-02-26] MEDS ORDERED: CEPH500C2 PO (08:21)
--- NOTE | 2018-02-26 08:24 | Discharge Instructions ---
Discharge Instructions Date of Service Feb 26, 2018. Admission Reason for Admission: Open Fracture Left 3RD, 4TH, 5TH Fingers Discharge Discharge Diagnosis / Problem: Open Fracture left 3rd, 4th, and 5th fingers Discharge Goals Goal(s): Decrease discomfort, Improve function Activity Recommendations Activity Limitations: per Instructions/Follow-up section . Instructions / Follow-Up Instructions / Follow-Up ACTIVITY RECOMMENDATIONS: * Avoid lifting anything with your operative arm until directed to by your surgeon. SPECIAL CARE INSTRUCTIONS: * Your bandage and splint should be left in place until your follow up appointment in the office. * Some drainage onto the dressing may occur. This is normal. * If the bandage feels excessively tight, you may loosen the elastic bandage. Then call the physician's office for further instructions. * If possible, keep your hand elevated above the level of your heart for the first 2 post operative days. You may use a sling if necessary. SPECIAL PRECAUTIONS: * If you notice increased drainage, fever over 101 degrees F. or severe, unremitting pain, call your physician/office at . * You may have been prescribed pain medication. If you experience nausea and/or skin rash, discontinue this medication and contact our office for an alternative medication. * An antibiotic has been sent to your pharmacy. Please take this as directed. FOLLOW UP VISIT: Please call [facility] to make a follow-up appointment for Saturday02/28/18 for a dressing change and wound check with our hand specialist, Dr. Castillo or his PA at . Current Hospital Diet Patient's current hospital diet: Regular Diet Discharge Diet Recommended Diet: Regular Diet Procedures Procedures Performed: Open lavage of open fracture of Displaced transverse fractures of the fourth and fifth proximal Left phalanges; percutaneous pinnings of 4th & 5th proximal phalaynx & proximal 3rd finger distal phalynx; repair of skin wounds with repair of nailbed Pending Studies Studies pending at discharge: no Medical Emergencies . Who to Call and When: Medical Emergencies: If at any time you feel your situation is an emergency, please call 911 immediately. . Non-Emergent Contact Non-Emergency issues call your: Surgeon Call Non-Emergent contact if: temperature is above 101, your pain is not controlled, your pain is worsening, your pain is concerning you, wound has increased drainage . "Provider Documentation" section prepared by Reji Quick. . [place] Drug Monitoring Program Search Results: patient reviewed within database, no issues identified
[2018-02-26] MEDS ORDERED: VENLAFAXINE HCL XR 150 MG CAPXR PO SCH (09:00)
[2018-02-26 11:28] VITALS: BP 107/57; PULSE 66; TEMP 36.6; O2SAT 98
--- NOTE | 2018-03-03 15:09 | DISCHARGE SUMMARY ---
DISCHARGE DIAGNOSES: Displaced transverse fractures of the fourth and fifth proximal left phalanges, small tuft fracture of the third distal left phalange, open fracture of the fifth proximal phalange, phalangeal fracture with possibility of open fracture of the fourth. SECONDARY DIAGNOSES: Anxiety, depression. CONSULTS: None. COMPLICATIONS: None. PROCEDURES: Open lavage of open fracture of displaced transverse fracture of the fourth and fifth proximal left phalanges, percutaneous pinning of the fourth and fifth proximal phalanx and proximal third finger distal phalanx, repair of skin wounds through pair of nail bed by Dr. Alvares on 02/25/2018. BRIEF HISTORY: As dictated in the history and physical. HOSPITAL SUMMARY: Patient was admitted on the above-noted date with the above-noted injuries and was taken to the operating room and the above-noted procedures were performed. On his first postoperative day, he was feeling well and had no complaints, would like to go home, neurovascularly was intact and his splint and dressing were clean, dry and intact. Vital signs were stable. He was afebrile. He was stable and it was felt he could be discharged to home. Plans were for him to follow up with Dr. Castillo's office the following day for dressing change and wound check. DISCHARGE INSTRUCTIONS: Patient was discharged to home in satisfactory condition on 02/26/2018. DIET: Regular. ACTIVITY: Follow instructions as noted and follow up with Dr. Castillo at [facility] on 02/28/2018 for dressing change and wound check.
== END 2018-02-26 12:10 | disposition home or self-care (01) ==
LOC: C.EDB 08:20 → C.MSW 16:21 → ENRESERV 16:50
PROVIDERS: ADMIT Orthopaedic Surgery; ATTEND Orthopaedic Surgery
DX: S62.617B Displaced fracture of proximal phalanx of left little finger, initial encounter for open fracture (principal); S62.616A Displaced fracture of proximal phalanx of right little finger, initial encounter for closed fracture; S62.633A Displaced fracture of distal phalanx of left middle finger, initial encounter for closed fracture; W23.0XXA Caught, crushed, jammed, or pinched between moving objects, initial encounter; Y93.9 Activity, unspecified; F41.9 Anxiety disorder, unspecified; F32.9 Major depressive disorder, single episode, unspecified; Z79.899 Other long term (current) drug therapy